=== PATIENT | male | born 1985 | race Caucasian/White ===

== ENCOUNTER → 2016-09-01 | Outpatient (CLI) | payer OTHER ==
[~2016-09-01] MED LIST: LISI-461 PO
[2016-09-01 13:18] LABS: URINE APPEARANCE CLEAR (CLEAR); URINE COLOR YELLOW; URINE SPECIFIC GRAVITY 1.014 (1.000-1.030); ZZUR CULT IF INDIC CLEAN CATCH NO
[2016-09-01 13:19] LABS: URINE BILIRUBIN NEG (NEG); URINE EPITHELIAL CELL AUTO 0-5 /lpf (0-5); URINE NITRITE NEG (NEG); UROBILINOGEN NEG (NEG)
[2016-09-01 13:23] LABS: MANUAL MICROSCOPIC REQUIRED? NO; REVIEW REQ? NO
== END | disposition home or self-care (01) ==
LOC: C.LABSPEC 07:35
PROVIDERS: ATTEND Physician Assistant
DX: R30.0 Dysuria (principal)

== ENCOUNTER → 2016-09-21 | Outpatient (CLI) | payer OTHER ==
[2016-09-21 13:16] LABS: ALT/SGPT 29 U/L (12-78); BLOOD UREA NITROGEN 18 mg/dl (7-18); BUN/CREATININE RATIO 13.7 (10-20); CALCIUM 9.4 mg/dl (8.5-10.1); CARBON DIOXIDE 28 mmol/L (21-32); CHLORIDE 105 mmol/L (98-107); CHOLESTEROL 149 mg/dl (0-200); GLUCOSE,FASTING 81 mg/dl (70-99); POTASSIUM 4.1 mmol/L (3.5-5.1); SODIUM 139 mmol/L (136-145); TRIGLYCERIDES 46 mg/dl (0-150); VERY LOW DENSITY LIPOPROT CALC 9 mg/dl
[2016-09-21 13:19] LABS: ALB/GLOB RATIO 1.4 (0.9-2); ALKALINE PHOSPHATASE 67 U/L (45-117); AST/SGOT 24 U/L (15-37); CHOLESTEROL/HDL RATIO 2.9; HDL CHOLESTEROL 51 mg/dl; LDL CHOLESTEROL CALCULATED 89 mg/dl
== END | disposition home or self-care (01) ==
LOC: C.LABPBG 07:45
PROVIDERS: ATTEND Physician Assistant
DX: Z00.00 Encounter for general adult medical examination without abnormal findings (principal); R68.89 Other general symptoms and signs; R53.83 Other fatigue

== ENCOUNTER 2016-10-06 19:24 | Emergency (ER) | payer OTHER ==
[~2016-10-06] VITALS: Ht 162.6 cm; Wt 76.2 kg
[2016-10-06 19:34] VITALS: TEMP 37.1; Ht 162.6 cm; Wt 76.2 kg
[2016-10-06] MEDS ORDERED: LISI-461 PO (19:53)
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
[2016-10-06 23:00] VITALS: BP 145/92; PULSE 82; O2SAT 98
== END 2016-10-06 23:01 | disposition home or self-care (01) ==
LOC: C.EDB 19:27 → C.EDD 23:01
DX: Z04.3 Encounter for examination and observation following other accident (principal); V87.7XXA Person injured in collision between other specified motor vehicles (traffic), initial encounter